=== PATIENT | female | born 1975 | race African-American/Black ===

== ENCOUNTER 2019-03-23 09:41 | Emergency (ER) | payer OTHER ==
[2019-03-23 09:56] VITALS: BP 150/91; PULSE 78; TEMP 97.8; BMI 32.5
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
[2019-03-23] MEDS ORDERED: DIPHTH,PERTUSS(ACELL),TET 0.5 ML DISP.SYRIN IM ONE ×2 (11:23→11:29)
== END 2019-03-23 13:45 | disposition home or self-care (01) ==
LOC: JERFT 09:41
PROC: 3E0234Z Introduction of Serum, Toxoid and Vaccine into Muscle, Percutaneous Approach (ICD-10-PCS; principal; 2019-03-23)
DX: S90.572A Other superficial bite of ankle, left ankle, initial encounter (principal); S90.02XA Contusion of left ankle, initial encounter; Y04.1XXA Assault by human bite, initial encounter; Y93.F9 Activity, other caregiving; Y92.198 Other place in other specified residential institution as the place of occurrence of the external cause; Y99.0 Civilian activity done for income or pay; Y07.59 Other non-family member, perpetrator of maltreatment and neglect
CPT/HCPCS: 73590-TC-LT-FY; 90715; 99282-25

== ENCOUNTER 2022-02-11 09:31 | Emergency (ER) | payer OTHER ==
[2022-02-11 09:49] VITALS: BMI 36.0
[2022-02-11] MEDS ORDERED: ASPIRIN 81 MG CHEWABLE TABLETS PO ONE (10:09)
[2022-02-11] MEDS ORDERED: ASPIRIN 81 MG CHEWABLE TABLETS ONE (10:27)
[2022-02-11 11:02] LABS: BASO % 0.6 % (0-2.0); EOS % 0.8 % (0-4.5); HEMOGLOBIN 10.9 GM/dL (10.7-15.3); MCH 24.4 pg (25.7-33.7); MEAN CELL VOLUME 76.2 fl (80-96); MEAN PLT VOLUME 7.5 fl (7.5-11.1); MONO % 6.5 % (3.8-10.2); NEUT % 58.1 % (42.8-82.8); PLATELET COUNT 244 10^3/uL (134-434); RBC 4.46 M/mm3 (3.60-5.2); WHITE BLOOD COUNT 3.8 K/mm3 (4.0-10.0)
[2022-02-11 11:25] LABS: CALCIUM 9.2 mg/dL (8.5-10.1)
[2022-02-11 11:26] LABS: ALBUMIN 3.5 g/dl (3.4-5.0); BLOOD UREA NITROGEN 14.8 mg/dL (7-18)
[2022-02-11 11:29] LABS: CREATININE 0.8 mg/dL (0.55-1.3)
[2022-02-11 11:31] LABS: BILIRUBIN,TOTAL 0.4 mg/dL (0.2-1); TOT PROT 7.7 g/dl (6.4-8.2)
[2022-02-11 16:34] VITALS: BP 159/90; PULSE 75; TEMP 97.9
== END 2022-02-11 16:40 | disposition home or self-care (01) ==
LOC: JER 09:31
DX: R07.9 Chest pain, unspecified (principal)
CPT/HCPCS: 36415; 71046-TC-FY; 80053; 84484; 85025; 93005; 93010; 99285-25